=== PATIENT | male | born 1990 | race Caucasian/White ===

== ENCOUNTER 2019-03-04 19:11 | Emergency (ER) | payer OTHER ==
[~2019-03-04] VITALS: Ht 175.3 cm; Wt 99.8 kg
[2019-03-04 19:19] VITALS: BP_SYST 149
== END 2019-03-04 21:12 | disposition left against medical advice (07) ==
LOC: SED 19:11
DX: M54.5 Low back pain (principal); Z53.21 Procedure and treatment not carried out due to patient leaving prior to being seen by health care provider